=== PATIENT | male | born 2005 | race Caucasian/White ===

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

== ENCOUNTER 2023-04-07 22:30 | Emergency (ER) | payer OTHER ==
[~2023-04-07] VITALS: Ht 175.3 cm; Wt 69.9 kg
[~2023-04-07 22:30] MED LIST changes: +KEPP1TAB PO
[2023-04-08 01:36] VITALS: TEMP 98
[2023-04-08] MEDS ORDERED: diphenhydrAMINE 50MG/ML VIAL IV ONE (02:30)
[2023-04-08] MEDS ORDERED: NS 1,000 ML IV ONE (02:30)
[2023-04-08] MEDS ORDERED: methylPREDNISolone 125MG 2ML VIAL IV ONE (02:30)
[2023-04-08] MEDS ORDERED: METOCLOPRAMIDE INJ 10MG/2ML VIAL IV ONE (02:30)
[2023-04-08] MEDS ORDERED: KETOROLAC 30 MG/ML 1ML VIAL IV ONE (02:30)
[2023-04-08] MEDS ORDERED: IPRATROPIUM 0.5MG/ALBUTEROL 2.5MG INH SOL UD 3ML (DUONEB) NEB ONE (02:30)
[2023-04-08 04:00] VITALS: BP 130/66; O2SAT 97
[2023-04-08] MEDS ORDERED: VENTAER INH (04:30)
[2023-04-08] MEDS ORDERED: PRED20TA PO (04:30)
[2023-04-08] MEDS ORDERED: ALBU8.5H INH (04:30)
== END 2023-04-08 04:36 | disposition home or self-care (01) ==
LOC: M ED 22:30
DX: J20.9 Acute bronchitis, unspecified (principal); G43.909 Migraine, unspecified, not intractable, without status migrainosus; Z79.52 Long term (current) use of systemic steroids; Z79.899 Other long term (current) drug therapy
CPT/HCPCS: 71046; 87486; 87581; 87633; 87798; 94640; 99284; J1200; J1885; J2765; J2930

== ENCOUNTER → 2023-11-01 | Outpatient (CLI) | payer OTHER ==
[~2023-11-01] MED LIST changes: +ALBU8.5H INH; +PRED20TA PO; +VENTAER INH
[2023-11-01 14:48] LABS: BASO # 0.1 10^3/uL (0.0-0.2); BASO % 0.7 % (0.0-1.0); EOS # 0.2 10^3/uL (0.0-0.5); HEMATOCRIT 47.1 % (42.0-52.0); HEMOGLOBIN 15.7 g/dl (13.5-17.5); LYMPH # 2.3 10^3/uL (1.5-5.0); LYMPH % 30.3 % (24.0-44.0); MEAN CORPUSCULAR HEMOGLOBIN 29.6 pg (27.0-33.0); MEAN CORPUSCULAR HGB CONC 33.3 g/dl (32.0-36.5); MEAN CORPUSCULAR VOLUME 88.7 fl (80.0-96.0); MONO # 0.5 10^3/uL (0.0-0.8); NEUTROPHILS # 4.5 10^3/uL (1.5-8.5); NEUTROPHILS % 59.7 % (36.0-66.0); PLATELET COUNT, AUTOMATED 272 10^3/uL (150-450); RED BLOOD COUNT 5.31 10^6/uL (4.30-6.10); WHITE BLOOD COUNT 7.5 10^3/uL (4.0-10.0)
[2023-11-01 15:06] LABS: ALBUMIN 4.3 G/DL (3.2-5.2); ALKALINE PHOSPHATASE 79 U/L (46-116); ALT/SGPT 42 U/L (7.0-40); AST/SGOT 20 U/L (<34); BILIRUBIN,TOTAL 0.7 MG/DL (0.3-1.2); BLOOD UREA NITROGEN 13 MG/DL (9-23); CALCIUM LEVEL 9.5 MG/DL (8.5-10.1); CARBON DIOXIDE LEVEL 29 MMOL/L (20-31); CHLORIDE LEVEL 105 MMOL/L (98-107); CREATININE FOR GFR 0.89 MG/DL (0.70-1.30); GLUCOSE, FASTING 81 MG/DL (60-100); POTASSIUM SERUM 4.6 MMOL/L (3.5-5.1); SODIUM LEVEL 140 MMOL/L (136-145); TOTAL PROTEIN 7.2 G/DL (5.7-8.2)
== END ==
LOC: M PLALAB 11:29
PROVIDERS: ATTEND Psychiatry & Neurology Neurology
DX: G40.89 Other seizures (principal)

== ENCOUNTER 2024-01-10 10:42 | Emergency (ER) | payer OTHER ==
[~2024-01-10] VITALS: Ht 175.3 cm; Wt 76.2 kg
[2024-01-10 10:43] VITALS: BP 132/82; TEMP 98.1; O2SAT 100
[2024-01-10] MEDS ORDERED: LEVE10003 (10:48)
[2024-01-10] MEDS: KETOROLAC 60MG 2ML VIAL IM ONE (13:09)
[2024-01-10] MEDS: LIDOCAINE 5% (LIDODERM) PATCH TD ONE (13:09)
[2024-01-10] MEDS ORDERED: DICL75TA PO (13:59)
[2024-01-10] MEDS ORDERED: LIDO5DIS41 TD (13:59)
== END 2024-01-10 14:11 | disposition home or self-care (01) ==
LOC: M ED 10:42
DX: M54.50 Low back pain, unspecified (principal); M54.31 Sciatica, right side; G40.909 Epilepsy, unspecified, not intractable, without status epilepticus; F17.200 Nicotine dependence, unspecified, uncomplicated; Z79.891 Long term (current) use of opiate analgesic; Z79.899 Other long term (current) drug therapy; Z79.1 Long term (current) use of non-steroidal anti-inflammatories (NSAID)
CPT/HCPCS: 72110; 72220; 73502; 96372; 99282; J1885

== ENCOUNTER 2024-03-16 09:21 | Emergency (ER) | payer OTHER ==
[~2024-03-16] VITALS: Ht 175.3 cm; Wt 75.5 kg
[~2024-03-16 09:21] MED LIST changes: +DICL75TA PO; +LEVE10003; +LIDO5DIS41 TD
[2024-03-16] MEDS ORDERED: ISOVUE-370 76% 100ML VIAL As Ordered ONE (10:05)
[2024-03-16] MEDS: METOCLOPRAMIDE INJ 10MG/2ML VIAL IV ONE (10:38)
[2024-03-16 10:49] LABS: BASO % 0.3 % (0.0-1.0); EOS # 0.2 10^3/uL (0.0-0.5); EOS % 2.6 % (0.0-3.0); HEMATOCRIT 42.3 % (42.0-52.0); HEMOGLOBIN 14.5 g/dl (13.5-17.5); LYMPH # 1.8 10^3/uL (1.5-5.0); LYMPH % 27.6 % (24.0-44.0); MEAN CORPUSCULAR HEMOGLOBIN 29.5 pg (27.0-33.0); MEAN CORPUSCULAR HGB CONC 34.3 g/dl (32.0-36.5); MONO # 0.5 10^3/uL (0.0-0.8); MONO % 7.9 % (2.0-8.0); NEUTROPHILS % 61.4 % (36.0-66.0); PLATELET COUNT, AUTOMATED 247 10^3/uL (150-450); RED BLOOD COUNT 4.92 10^6/uL (4.30-6.10); WHITE BLOOD COUNT 6.6 10^3/uL (4.0-10.0)
[2024-03-16 11:05] LABS: INR 1.18; PARTIAL THROMBOPLASTIN TIME 30.2 SECONDS (24.8-34.2); PROTHROMBIN TIME 14.7 SECONDS (12.5-14.5)
[2024-03-16 11:19] LABS: BLOOD UREA NITROGEN 16 MG/DL (9-23); CALCIUM LEVEL 9.2 MG/DL (8.5-10.1); CARBON DIOXIDE LEVEL 28 MMOL/L (20-31); CHLORIDE LEVEL 106 MMOL/L (98-107); CREATININE FOR GFR 0.89 MG/DL (0.70-1.30); GLUCOSE, FASTING 90 MG/DL (60-100); POTASSIUM SERUM 3.9 MMOL/L (3.5-5.1); SODIUM LEVEL 140 MMOL/L (136-145)
[2024-03-16] MEDS ORDERED: REGL10TA6 PO (12:54)
[2024-03-16 13:15] VITALS: O2SAT 98
[2024-03-16 13:32] VITALS: BP 105/54; TEMP 97.5
== END 2024-03-16 13:35 | disposition home or self-care (01) ==
LOC: M ED 09:21
DX: G43.909 Migraine, unspecified, not intractable, without status migrainosus (principal); R00.1 Bradycardia, unspecified; I49.8 Other specified cardiac arrhythmias; G40.909 Epilepsy, unspecified, not intractable, without status epilepticus; F10.10 Alcohol abuse, uncomplicated; F17.200 Nicotine dependence, unspecified, uncomplicated; Z79.1 Long term (current) use of non-steroidal anti-inflammatories (NSAID); Z79.899 Other long term (current) drug therapy
CPT/HCPCS: 70450; 70496; 70498; 70551; 71045; 80047; 80048; 85025; 85610; 85730; 93005; 93041; 94760; 96374; 99285; J2765; Q9967

== ENCOUNTER 2024-04-14 21:14 | Emergency (ER) | payer OTHER ==
[~2024-04-14] VITALS: Ht 175.3 cm; Wt 75.0 kg
[~2024-04-14 21:14] MED LIST changes: +REGL10TA6 PO
[2024-04-14] MEDS: ACETAMINOPHEN 500 MG TAB PO ONE (23:31)
[2024-04-15 00:46] VITALS: BP 141/90; TEMP 97.8; O2SAT 96
[2024-04-15] MEDS ORDERED: IBUP-1022 PO (01:22)
== END 2024-04-15 01:41 | disposition home or self-care (01) ==
LOC: M ED 21:14
DX: S00.83XA Contusion of other part of head, initial encounter (principal); Y04.8XXA Assault by other bodily force, initial encounter; G40.909 Epilepsy, unspecified, not intractable, without status epilepticus; M54.50 Low back pain, unspecified; Y92.830 Public park as the place of occurrence of the external cause; Y93.89 Activity, other specified; Y99.9 Unspecified external cause status; Z79.899 Other long term (current) drug therapy; Z79.1 Long term (current) use of non-steroidal anti-inflammatories (NSAID)

== ENCOUNTER → 2024-04-16 | Outpatient (CLI) | payer OTHER ==
[~2024-04-16] MED LIST changes: +IBUP-1022 PO
== END ==
LOC: M LAB 15:22
PROVIDERS: ATTEND Psychiatry & Neurology Neurology
DX: Z51.81 Encounter for therapeutic drug level monitoring (principal)

== ENCOUNTER 2024-07-21 17:52 | Inpatient (IN) | payer OTHER ==
[~2024-07-21] VITALS: Ht 175.3 cm; Wt 77.1 kg
[~2024-07-21 17:52] MED LIST changes: -LEVE10003; +LEVE10003 PO
[2024-07-21 18:42] LABS: HEMOGLOBIN 15.6 g/dl (13.5-17.5); MEAN CORPUSCULAR HEMOGLOBIN 29.8 pg (27.0-33.0); MEAN CORPUSCULAR HGB CONC 33.9 g/dl (32.0-36.5); PLATELET COUNT, AUTOMATED 255 10^3/uL (150-450); RED BLOOD COUNT 5.23 10^6/uL (4.30-6.10)
[2024-07-21 19:12] LABS: BARBITURATES URINE NEGATIVE (NEGATIVE); CANNABINOIDS URINE NEGATIVE (NEGATIVE); COCAINE METABOLITE URINE NEGATIVE (NEGATIVE); METHADONE URINE NEGATIVE (NEGATIVE); OPIATES URINE NEGATIVE (NEGATIVE); PHENCYCLIDINE URINE NEGATIVE (NEGATIVE)
[2024-07-21 19:13] LABS: AMPHETAMINES LEVEL URINE NEGATIVE (NEGATIVE); BENZODIAZEPINES URINE NEGATIVE (NEGATIVE)
[2024-07-21 19:14] LABS: ETHYL ALCOHOL (ETHANOL) < 0.003 % (0.000-0.010)
[2024-07-21 19:16] LABS: ALBUMIN 4.5 G/DL (3.2-5.2); ALKALINE PHOSPHATASE 86 U/L (46-116); ALT/SGPT 24 U/L (7.0-40); AST/SGOT 16 U/L (<34); BILIRUBIN,DIRECT 0.1 MG/DL (<0.4); BILIRUBIN,TOTAL 0.3 MG/DL (0.3-1.2); BLOOD UREA NITROGEN 15 MG/DL (9-23); CALCIUM LEVEL 9.8 MG/DL (8.5-10.1); CARBON DIOXIDE LEVEL 28 MMOL/L (20-31); CHLORIDE LEVEL 107 MMOL/L (98-107); CREATININE FOR GFR 1.03 MG/DL (0.70-1.30); GLOMERULAR FILTRATION RATE > 60.0 (>60); GLUCOSE, FASTING 79 MG/DL (60-100); POTASSIUM SERUM 4.3 MMOL/L (3.5-5.1); SALICYLATE LEVEL < 3.0 MG/DL (<30); SODIUM LEVEL 138 MMOL/L (136-145); TOTAL PROTEIN 7.6 G/DL (5.7-8.2)
[2024-07-21 19:19] LABS: THYROID STIMULATING HORMONE 1.838 uIU/ML (0.55-4.78)
[2024-07-21] MEDS ORDERED: CELE1CAP99 PO (20:12)
[2024-07-21] MEDS ORDERED: VENL1TAB35 PO (20:12)
[2024-07-21] MEDS ORDERED: HOME MED LIST COMPLETE! XX SCH (20:15)
[2024-07-21] MEDS ORDERED: IBUPROFEN 400MG TAB PO PRN (20:35)
[2024-07-21] MEDS ORDERED: ACETAMINOPHEN TAB 650MG DOSE (2X325MG) PO PRN (20:35)
[2024-07-21] MEDS ORDERED: MAALOX 30 ML SUSP *UDC PO PRN (20:35)
[2024-07-21] MEDS ORDERED: diphenhydrAMINE 25MG CAP PO PRN (20:35)
[2024-07-21] MEDS ORDERED: MOM 30ML SUSPENSION UDC PO PRN (20:35)
[2024-07-21] MEDS: levETIRAcetam 250MG TABLET (KEPPRA) PO SCH (20:46)
[2024-07-21] MEDS: VENLAFAXINE 25 MG TAB PO SCH (20:46)
[2024-07-21] MEDS: CelecoXIB (CeleBREX) 100 MG CAP PO SCH (20:46)
[2024-07-21 23:30] VITALS: BP 136/94; TEMP 97.8; O2SAT 96
[2024-07-22 06:20] VITALS: BP 131/67; TEMP 97.2; O2SAT 100
[2024-07-22] MEDS: levETIRAcetam 250MG TABLET (KEPPRA) PO SCH (11:00)
[2024-07-22] MEDS: VENLAFAXINE **XR** 75MG CAPSULE PO SCH (11:57)
[2024-07-22 16:33] VITALS: BP 137/66; TEMP 97.7; O2SAT 98
[2024-07-22] MEDS: ACETAMINOPHEN 500 MG TAB PO SCH (18:14)
[2024-07-22] MEDS: DICLOFENAC EPOLAMINE 1.3% PATCH TOP SCH (18:15)
[2024-07-22] MEDS: CelecoXIB (CeleBREX) 100 MG CAP PO SCH (20:19)
[2024-07-22 20:23] VITALS: BP 118/90
[2024-07-22] MEDS: PRAZOSIN 1 MG CAP PO SCH (20:23)
[2024-07-22] MEDS: traZODone 50 MG TAB PO PRN (21:06)
[2024-07-22] MEDS: CYCLOBENZAPRINE 5MG TABLET PO SCH (21:06)
[2024-07-22] MEDS: GABAPENTIN 100 MG CAP PO SCH (21:06)
[2024-07-23 06:13] VITALS: BP 114/64; TEMP 97.8; O2SAT 96
[2024-07-23] MEDS: LIDOCAINE 5% (LIDODERM) PATCH TD SCH (08:52)
[2024-07-23] MEDS ORDERED: GABA-1171 PO (09:09)
[2024-07-23] MEDS ORDERED: LIDO5TD TD (09:09)
[2024-07-23] MEDS ORDERED: DICL1PAT6 TOP (09:09)
[2024-07-23] MEDS ORDERED: VENL1TAB35 PO (09:09)
[2024-07-23] MEDS ORDERED: PRAZ1CAP PO (09:09)
== END 2024-07-23 11:52 | disposition home or self-care (01) | DRG 881 ==
LOC: M ED 17:52 → M ED INP 20:31 → M PSY 23:18
PROVIDERS: ADMIT Psychiatry & Neurology Psychiatry; ATTEND Psychiatry & Neurology Psychiatry
DX: F32.A Depression, unspecified (principal); R45.851 Suicidal ideations; F43.10 Post-traumatic stress disorder, unspecified; Z79.899 Other long term (current) drug therapy; F17.290 Nicotine dependence, other tobacco product, uncomplicated; M54.59 Other low back pain; G40.909 Epilepsy, unspecified, not intractable, without status epilepticus; M54.30 Sciatica, unspecified side

== ENCOUNTER 2025-06-02 14:51 | Emergency (ER) | payer OTHER, SELFPAY ==
[~2025-06-02] VITALS: Ht 177.8 cm; Wt 68.3 kg
[~2025-06-02 14:51] MED LIST changes: +CELE1CAP99 PO; +DICL1PAT6 TOP; +GABA-1171 PO; +LIDO1ADH93 TD; -LIDO5DIS41 TD; +LIDO5TD TD; +PRAZ1CAP PO; +VENL1TAB35 PO
[2025-06-02] MEDS: NS (Normal Saline) 0.9% 1,000 ML IV ONE (16:06)
[2025-06-02 16:20] LABS: BASO # 0.0 10^3/uL (0.0-0.2); BASO % 0.4 % (0.0-1.0); EOS # 0.0 10^3/uL (0.0-0.5); EOS % 0.1 % (0.0-3.0); LYMPH # 0.4 10^3/uL (1.5-5.0); LYMPH % 6.0 % (24.0-44.0); MONO # 0.7 10^3/uL (0.0-0.8); MONO % 10.1 % (2.0-8.0); NEUTROPHILS # 5.9 10^3/uL (1.5-8.5); NEUTROPHILS % 82.8 % (36.0-66.0); PLATELET COUNT, AUTOMATED 216 10^3/uL (150-450)
[2025-06-02 16:33] LABS: INR 1.14
[2025-06-02] MEDS: NS 500 ML IV ONE (17:50)
[2025-06-02] MEDS ORDERED: ISOVUE-370 76% 100 ML VIAL As Ordered ONE (17:54)
[2025-06-02 18:57] LABS: CARBON DIOXIDE LEVEL 23.3 MMOL/L (20-31); CHLORIDE LEVEL 102 MMOL/L (98-107); CREATININE FOR GFR 1.01 MG/DL (0.70-1.30); GLOMERULAR FILTRATION RATE > 90.0 (>60); POTASSIUM SERUM 3.3 MMOL/L (3.5-5.1); SODIUM LEVEL 140 MMOL/L (136-145)
[2025-06-02 18:58] LABS: ALT/SGPT 20 U/L (7.0-40); AST/SGOT 17 U/L (<34); CALCIUM LEVEL 9.5 MG/DL (8.5-10.1)
[2025-06-02 18:59] LABS: C REACTIVE PROTEIN QUANTITATIV 0.73 MG/DL (<1.0)
[2025-06-02 21:14] LABS: APPEARANCE, URINE CLEAR (CLEAR); BACTERIA, URINE AUTO NEGATIVE (NEGATIVE); BILIRUBIN, URINE AUTO NEGATIVE (NEGATIVE); BLOOD, URINE BLOOD 1+ (NEGATIVE); GLUCOSE, URINE (UA) AUTO NEGATIVE (NEGATIVE); KETONE, URINE AUTO 1+ mg/dL (NEGATIVE); LEUKOCYTE ESTERASE, URINE AUTO NEGATIVE (NEGATIVE); MUCUS, URINE SMALL (NEGATIVE); NITRITE, URINE AUTO NEGATIVE (NEGATIVE); PROTEIN, URINE AUTO NEGATIVE (NEGATIVE); RBC, URINE AUTO 1 /HPF (0-3); SPECIFIC GRAVITY URINE AUTO 1.047 (1.002-1.035); SQUAMOUS EPITHELIAL CELL UR AU 0 /HPF (0-6); UROBILINOGEN, URINE AUTO 0.2 mg/dL (0.0-2.0); WBC, URINE AUTO 2 /HPF (0-3)
[2025-06-02 21:40] VITALS: BP 119/58
[2025-06-02] MEDS ORDERED: REGL10TA6 PO (21:42)
[2025-06-02 21:51] VITALS: O2SAT 100
[2025-06-02 21:56] VITALS: TEMP 100.9
[2025-06-02] MEDS: ACETAMINOPHEN 500 MG TAB PO ONE (22:02)
== END 2025-06-02 22:15 | disposition home or self-care (01) ==
LOC: M ED 14:51
DX: U07.1 COVID-19 (principal); R00.0 Tachycardia, unspecified; G40.909 Epilepsy, unspecified, not intractable, without status epilepticus; M54.50 Low back pain, unspecified; Z79.899 Other long term (current) drug therapy
CPT/HCPCS: 71045; 74177; 80048; 80076; 81001; 82150; 83605; 83690; 84145; 85025; 85610; 85730; 86140; 86850; 86900; 86901; 87040; 87088; 87186; 87486; 87581; 87633; 87798; 93005; 93041; 94760; 96374; 99285; J2765; Q9967

== ENCOUNTER → 2025-08-03 | Outpatient (CLI) | payer OTHER ==
[~2025-08-03] MED LIST changes: -IBUP-1022 PO; +IBUP600T42 PO
== END ==
LOC: M PLAIMG 07:02
PROVIDERS: ATTEND Student in an Organized Health Care Education/Training Program
DX: M54.16 Radiculopathy, lumbar region (principal)